=== PATIENT | male | born 1975 | race Caucasian/White ===

== ENCOUNTER 2018-03-28 09:29 | Outpatient (CLI) | payer BC, SELFPAY ==
[2018-03-28 13:48] LABS: ALT 24 U/L (12-78); AST 18 U/L (15-37); Albumin 4.1 g/dL (3.4-5.0); Alkaline Phosphatase 79 U/L (46-116); Anion Gap 6.7 mmol/L (3-11); BUN 16 mg/dL (7-18); Bilirubin, Total 0.6 mg/dL (0.2-1.0); CO2 31.3 mmol/L (21.0-32.0); CREATININE 0.89 mg/dL (0.70-1.30); Calcium 8.8 mg/dL (8.5-10.1); Chloride 104 mmol/L (98-107); Cholesterol 157 mg/dL (50-200); Glucose 85 mg/dL (70-100); HDL Cholesterol 35 mg/dL (40-60); LDL CHOLESTEROL 108 mg/dL (<100); Potassium 4.4 mmol/L (3.5-5.1); Sodium 142 mmol/L (136-145); Total Protein 6.7 g/dL (6.4-8.2); Triglyceride 95 mg/dL (30-150)
== END 2018-03-28 09:49 ==
PROVIDERS: PCP Family Medicine; Visit Provider Family Medicine
DX: Z00.00 Encounter for general adult medical examination without abnormal findings (principal); I10 Essential (primary) hypertension
CPT/HCPCS: 36415; 80053; 80061; 83721

== ENCOUNTER 2023-06-17 09:06 | Outpatient (CLI) | payer BC, SELFPAY ==
[2023-06-17 12:47] LABS: ALT 31 U/L (16-63); AST 16 U/L (15-37); Albumin 4.1 g/dL (3.4-5.0); Alkaline Phosphatase 93 U/L (46-116); Anion Gap 9.3 mmol/L (3-11); BUN 17 mg/dL (7-18); Bilirubin, Total 0.8 mg/dL (0.2-1.0); CO2 28.7 mmol/L (21.0-32.0); CREATININE 1.2 mg/dL (0.70-1.30); Calcium 9.3 mg/dL (8.5-10.1); Calculated LDL 126 mg/dL (<100); Chloride 107 mmol/L (98-107); Cholesterol 184 mg/dL (<200); Estimated GFR 74.13 (mL/min/1.73m2); Glucose 109 mg/dL (74-106); HDL Cholesterol 45 mg/dL (40-60); Potassium 4.1 mmol/L (3.5-5.1); Sodium 145 mmol/L (136-145); TSH (W/Ref FT4) 3.42 uIU/mL (0.36-3.74); Total Protein 7.3 g/dL (6.4-8.2); Triglyceride 67 mg/dL (<150)
[2023-06-17 18:57] LABS: PSA, Screening 0.5 ng/mL (<=2.5)
== END 2023-06-17 09:07 | disposition home or self-care (01) ==
LOC: LOS 09:06
PROVIDERS: PCP Family Medicine; Referring Provider Family Medicine; Visit Provider Family Medicine
DX: Z00.00 Encounter for general adult medical examination without abnormal findings (principal)
CPT/HCPCS: 36415; 80053; 80061; 84153; 84443

== ENCOUNTER 2023-12-20 08:58 | Day surgery (SDC) | payer BC, SELFPAY ==
[2023-12-20 09:21] VITALS: BP 139/91; PULSE 79; RESP 16; TEMP 36.2; O2SAT 97
[2023-12-20] MEDS: Lactated Ringers 1,000 ML 80 ML IV (09:36)
--- NOTE | 2023-12-20 10:08 | W.COLOREPORT ---
Date of service: 12/20/23 Time of Service: 10:08 Colonoscopy Report Procedure Description: PROCEDURES PERFORMED: 1. Colonoscopy with hot snare polypectomy 2. PREOPERATIVE DIAGNOSIS: Screening colonoscopy POSTOPERATIVE DIAGNOSIS: Colon polyps SURGEON: Otilia Driver MD INDICATION for procedure: The patient is a 48-year-old man with no symptoms. Never had a colonoscopy before. No family history of colon cancer. FINDINGS: The terminal ileum was normal. There is no obvious diverticular disease. In the sigmoid colon a 3-5 mm sessile polyp was removed with hot snare technique. No other polyps were seen. No significant hemorrhoid disease. SURVEILLANCE interval/FOLLOW-UP: 3 - 10 years. If sessile serrate or villous histology, then in 3 years. Otherwise, 7-10 year followup is acceptable. SPECIMENS: Yes EBL: Minimal COMPLICATIONS: None QUALITY of prep: Excellent Procedure in detail: The patient gave written consent and was in agreement with the indications, the potential risks as well as the benefits of the procedure. They were taken to the endoscopy suite and laid in the left lateral decubitus position. A timeout was performed and anesthesia was administered which was tolerated well. I started the procedure. Digital rectal and visual examination was performed and grossly within normal limits. A well-lubricated flexible colonoscope was then introduced and passed without any notable difficulty all the way to the cecum identified by the ileocecal valve and the appendiceal orifice. Terminal ileum was intubated and looked normal. The scope was then slowly withdrawn with the above-noted findings. The patient tolerated the procedure well and was taken to the PACU in hemodynamically stable condition.
--- NOTE | 2023-12-20 10:16 | PDOC.DSDIS_ITS ---
Date of service: 12/20/23 Time of Service: 10:16 Discharge Plan Disposition Patient Disposition: Home Condition: Good Discharge Details Attending Provider: Akhil Driver Primary Care Provider: Nu Monterroso Home Meds and New Rx's Prescriptions: No Action bisacodyl [Dulcolax (bisacodyl)] 5 mg tablet,delayed release (DR/EC) 5 mg PO ONCE Qty: 4 0RF Rx Instructions: Take per colonoscopy instructions provided by ordering providers office polyethylene glycol 3350 17 gram/dose powder 17 g PO ONCE Qty: 238 0RF Rx Instructions: Take per colonoscopy instructions provided by ordering providers office Discharge Instructions Additional Instructions: FINDINGS: Small polyp was found and removed today. This is why we do the colonoscopies. It is nothing to worry about. It gets sent for testing and a lab. Those results will determine whether or not you have another colonoscopy in 3 years or 10 years. Under most circumstances, it would be a 10-year follow- up. You will get called with those results in a couple of weeks. Stand Alone Forms: Anesthesia Discharge Inst., Colonoscopy Post Instructions, Gil Zhu (DSU) Activity:: Activity as Tolerated Diet:: As Tolerated
--- NOTE | 2023-12-20 10:27 | W.ANESPRE ---
General Info Date of Service Date Performed: 12/20/23 Height: 5 ft 10 in Weight: 86.8 kg Body Mass Index (BMI): 27.4 Surgical Procedure: Operation Date: 12/20/23 10:50 Proposed Procedure Side Surgeon p Colonoscopy Akhil Driver MD Actual Procedure Side Surgeon p Colonoscopy Not Applicable Akhil Driver MD Pre-Op Diagnosis Post-Op Diagnosis screening colonoscopy Meds Allergies and Home Medications Allergies Allergy/AdvReac Type Severity Reaction Status Date / Time No Known Allergies Allergy Verified 12/20/23 09:21 Home Medication ?Medication ?Instructions ?Recorded bisacodyl 5 mg tablet,delayed 5 mg PO ONCE #4 tabs 11/25/23 release (Dulcolax (bisacodyl)) polyethylene glycol 3350 17 17 g PO ONCE #238 grams 11/25/23 gram/dose oral powder Current Visit Medications: Current Medications Generic Name Dose Route Start Last Admin Trade Name Freq PRN Reason Stop Dose Admin Ringer's Solution 1,000 mls @ 80 mls/hr 12/20/23 06:00 12/20/23 09:36 IV 12/20/23 23:59 80 mls/hr INFUSION CAMRON Administration IV Miscellaneous Supplies 1 each 12/20/23 06:00 Iv Access IV 12/20/23 23:59 DIRECTED CAMRON Sodium Chloride 0 ml 12/20/23 06:00 Normal Saline Flush 10 Ml Syr IV 12/20/23 23:59 PRN PRN Sodium Chloride 0 ml 12/20/23 06:00 Normal Saline 10 Ml Vial IJ 12/20/23 23:59 DIRECTED PRN Sterile Water 0 ml 12/20/23 06:00 Water,Injection,Sterile 10 Ml Vial IJ 12/20/23 23:59 DIRECTED PRN PFSH Active Problems Active Problems: Problem Status Onset Code Encounter for screening colonoscopy Acute Z12.11 Spermatocele Chronic 12/15/12 N43.40 Shoulder pain Chronic 12/15/12 M25.519 Kidney stone Resolved 12/11/13 N20.0 Essential hypertension Chronic 06/02/13 I10 Annual physical exam Acute 02/04/15 Z00.00 Medical History Medical History Stress due to illness of family member (02/04/15) Surgical History Surgical History Vasectomy (~2009) Tobacco Smoking/Tobacco Use Status: Never Passive smoking exposure: Yes (public, before laws changed) Second hand exposure: Yes Alcohol Alcohol Intake: current Alcohol intake frequency: a few times a month Alcohol type: beer Substance Use Substance use: Never Substance use type: does not use Vital Signs and Lab Results Vital Signs Most Recent Vital Signs in EMR: Most Recent Vital Signs Temp Pulse Resp BP Pulse Ox 36.2 C L 79 16 139/91 H 97 12/20/23 09:21 12/20/23 09:21 12/20/23 09:21 12/20/23 09:21 12/20/23 09:21 Lab Results Blood Type / Crossmatch: No Data to Display Complete Blood Count: No Data to Display Complete Metabolic Panel: No Data to Display Liver Function Panel: No Data to Display Coagulation Panel: No Data to Display Cardiac Panel: No Data to Display Arterial Blood Gas: No Data to Display Venous Blood Gas: No Data to Display Pancreas Panel: No Data to Display Thyroid Panel: No Data to Display Infectious Disease: No Data to Display Blood Cultures: No Data to Display Toxicology Panel: No Data to Display Anesthesia Assessment and Plan Anesthesia History Personal History: No History of Anesthesia Complications Family History: No Family History of Anesthesia Complications Exercise Tolerance Exercise Tolerance: Metabolic Equivalents>4 Pertinent Negatives Pertinent Negatives: No Symptoms of GERD Cardiac & Pulmonary Exam Cardiac Exam: Normal S1/S2 Heart Sounds Pulmonary Exam: Clear Bilateral Breath Sounds Implantable Cardiac Device Does patient have a Pacemaker or an ICD?: No Airway Exam Known Difficult Airway: No Mallampati Class: 2 Mouth Opening: Normal (> 3cm) Thyromental Distance: Greater than 3 cm Neck Range of Motion: Full ROM Neck Circumference: Normal Teeth Condition: Normal Dentition ASA Classification ASA Score: ASA 2 Emergency Case?: No NPO Status NPO Status: NPO Clears >2 hours, Solids >8 hours Anesthesia Plan Resuscitation Status: Full Code Anesthesia Technique: General Anesthesia Airway Planned: Natural Airway Monitors Used: Standard Monitors
[2023-12-20 10:28] VITALS: BMI 27.4
--- NOTE | 2023-12-20 10:55 | BOWEL_PTH ---
PATIENT: Jb Estrada LOC: [facility] U#:[id number] AGE/SX: 48/M ROOM: RE12/20/[address]: Akhil Driver : 1975 BED: DIS: 12/20/2023 SPEC #: [id number] RECD: 12/20/23 11:42 STATUS: ELISE REQ #: [id number] JOSÉ MIGUEL: 12/20/23 10:[address]: Akhil Driver DEPT: Surgical Specimen RECD BY: Hamida Mena ENTERED: 12/20/23 11:44 SP TYPE: Bowel OTHR DR: Nu Monterroso MD, DC Tissues: 1 - BIOPSY BOWEL Procedures: GROSS AND MICRO LEVEL 4 Comments: [id number]
[2023-12-20 11:06] VITALS: BP 112/78; PULSE 84; RESP 16; TEMP 36.5; O2SAT 96
--- NOTE | 2023-12-20 11:13 | W.ANESPOSTOP ---
Postoperative Evaluation Date, Time and Location Date Performed: 12/20/23 Time Performed: 11:13 Patient Location: Day Surgery Unit Vital Signs Most Recent Imported Vital Signs: Most Recent Vital Signs Temp Pulse Resp BP Pulse Ox 36.5 C 84 16 112/78 96 12/20/23 11:06 12/20/23 11:06 12/20/23 11:06 12/20/23 11:06 12/20/23 11:06 Pain Score Most Recent Pain Score: Most Recent Pain Score Pain Level 0 12/20/23 09:21 Assessment Mental Status: Awake (Alert & Oriented to Patient Baseline) Airway and Respiratory Function: Patent airway with normal (patient baseline) respiratory exam Cardiovascular Function: Hemodynamically Stable Hydration Status: Adequately Hydrated Nausea & Vomiting: No Nausea or Vomiting Pain: Pt. Denies Any Pain Peripheral Nerve Block: Patient did not receive a nerve block
[2023-12-20 11:34] VITALS: BP 122/85; PULSE 68; RESP 18; TEMP 36.9; O2SAT 98
== END 2023-12-20 11:50 | disposition home or self-care (01) ==
PROVIDERS: PCP Family Medicine; Visit Provider Student in an Organized Health Care Education/Training Program
PROC: 0DJD8ZZ Inspection of Lower Intestinal Tract, Via Natural or Artificial Opening Endoscopic (ICD-10-PCS; CPT 45378; principal; 2023-12-20 10:45)
DX: Z12.11 Encounter for screening for malignant neoplasm of colon (principal); I10 Essential (primary) hypertension; D12.5 Benign neoplasm of sigmoid colon
CPT/HCPCS: 45385; 00123; 88305; J2001; J2704